=== PATIENT | female | born 1950 | race Caucasian/White ===

== ENCOUNTER 2021-11-10 14:53 | Emergency (ER) | payer OTHER, SELFPAY ==
--- NOTE | ~2021-11-10 | XR_ITS ---
XR chest 2V DATE: 11/10/2021 15:39 INDICATION: Shortness of breath, near syncope. Lethargy TECHNIQUE: AP and lateral views COMPARISON: None FINDINGS: Heart size is borderline. There is aortic unfolding and calcification. No hilar or mediasti nal enlargement. No pulmonary infiltrate or consolidation, pleural effusion or pulmonary vascular con gestion or pneumothorax. Diffuse osteopenia. IMPRESSION: No active pulmonary disease Borderline heart size Aortic atherosclerosis Reviewed, dictated and finalized at location B.
[2021-11-10 14:52] VITALS: BP 125/76; PULSE 81; RESP 22; TEMP 36.4; O2SAT 92
--- NOTE | 2021-11-10 15:03 | ECG_ITS ---
Measurements Intervals [place] Rate: 85 P: 39 WA: 149 QRS: 18 QRSD: 94 T: 2 QT: 409 QTc: 489 Interpretive Statements SINUS RHYTHM VENTRICULAR PREMATURE COMPLEX NONSPECIFIC ST & T-WAVE ABNORMALITY- DIFFUSE LEADS BASELINE WANDER- I, III BORDERLINE ECG Electronically Signed On 11-10-2021 15:19:33 CDT by Maged Lemos D.O.
[2021-11-10] MEDS: SODIUM CHLORIDE 0.9% IV 1,000 ML 999 ML IV CONT (15:10)
[2021-11-10] MEDS: ONDANSETRON INJ 4 MG/2 ML VIAL IV PUSH (15:16)
[2021-11-10 15:17] VITALS: BP 122/78; PULSE 78; PULSE 80; RESP 22; O2SAT 88
[2021-11-10 15:21] VITALS: O2SAT 96
--- NOTE | 2021-11-10 15:21 | PC.NURSE ---
Pt placed on 2 L NC O2 due to oxy 88% on room air. Denies home O2 use, denies feeling SOB. O2 sat now 96% on 2 L NC.
[2021-11-10 15:22] LABS: Basophils Absolute Auto 0.1 K/mm3 (0.0-0.1); Basophils Percent Auto 0.4 % (0.2-1.2); Eosinophils Absolute Auto 0.1 K/mm3 (0-0.3); Eosinophils Percent Auto 0.9 % (0-4.4); Hematocrit 49.4 % (37.0-47.0); Hemoglobin 15.9 g/dL (12.0-15.0); Immature Granulocyte Absolute 0.05 K/mm3 (0.00-0.031); Immature Granulocyte Percent A 0.4 % (0-0.5); Immature Platelet Fraction Pct 7.2 % (0.9-11.2); Lymphocytes Percent Auto 5.5 % (18.3-44.2); Mean Corpuscular HGB Conc 32.2 g/dl (32-36); Mean Corpuscular Hemoglobin 29.8 pg (26-34); Mean Corpuscular Volume 92.5 fl (80-100); Mean Platelet Volume 10.5 fl (7.4-10.4); Monocytes Absolute Auto 0.4 K/mm3 (0.1-0.6); Monocytes Percent Auto 2.8 % (2.6-8.5); Neutrophils Absolute Auto 11.5 K/mm3 (1.3-6.7); Platelet Count Result 277 k/mm3 (150-375); Red Blood Count 5.34 M/mm3 (4.2-5.4); Red Cell Distribution Width 13.2 % (11.5-14.5); White Blood Count 12.8 K/mm3 (4.5-10.0)
[2021-11-10] MEDS: NALOXONE HCL 0.4 MG/ML VIAL IV PUSH (15:28)
[2021-11-10 15:29] LABS: Alanine Aminotransferase 22 U/L (6-35); Albumin Level 4.4 g/dL (3.5-5.1); Alkaline Phosphatase 83 U/L (38-126); Anion Gap 9 mmol/L (8-16); Aspartate Amino Transferase 27 U/L (14-36); Bilirubin,Total 0.8 mg/dL (0.2-1.3); Blood Urea Nitrogen 32 mg/dL (7-17); Calcium 9.3 mg/dL (8.4-10.2); Carbon Dioxide 22 mmol/L (22-30); Chloride 107 mmol/L (98-107); Estimated CRCL calculation 40 ml/min; Estimated Glomerular Filt Rate > 60; Glucose 118 mg/dL (65-110); Lipase 98 U/L (23-300); Sodium 138 mmol/L (137-145)
--- NOTE | 2021-11-10 15:30 | PC.NURSE ---
Pt became alert after admin of narcan IVP, pt denies taking any medications for pain.
--- NOTE | 2021-11-10 15:30 | PC.NURSE ---
Pt to XRAY via stretcher at this time.
[2021-11-10 16:02] LABS: Appearance Urine Clear (Clear); Bilirubin Urine Negative (Negative); Blood Urine 2+ (Negative); Color Urine Yellow (Yellow); Glucose Urine UA Negative (Negative); Ketones Urine Negative (Negative); Leukocyte Esterase Ur Negative LEU/UL (Negative); Nitrate Urine Negative (Negative); Protein Urine 2+ mg/dL (Negative); Specific Grav Ur 1.025 (1.001-1.035); Urobilinogen Urine 0.2 mg/dL (<2.0); pH Urine 5.5 (5.0-9.0)
[2021-11-10 16:04] LABS: Add Urine Microscopic? YES
[2021-11-10 16:13] VITALS: PULSE 93; RESP 16; O2SAT 99
--- NOTE | 2021-11-10 16:14 | PC.NURSE ---
Pt is 99% on room air.
[2021-11-10 16:19] LABS: Mucus Urine Few /lpf; WBC Urine 0-3 /hpf
[2021-11-10 16:25] LABS: Benzodiazepines Screen Urine Negative (Negative)
[2021-11-10 16:30] LABS: Barbiturate Screen Urine Negative (Negative)
[2021-11-10 16:31] LABS: Amphetamine Screen Urine Negative (Negative); Cannabinoid Screen Urine Negative (Negative); Cocaine Screen Urine Negative (Negative); Methadone Screen Urine Negative (Negative); Opiate Screen Urine Negative (Negative); Phencyclidine Screen Urine Negative (Negative)
[2021-11-10] MEDS: POTASSIUM CHLORIDE 20 MEQ TABLET 40 MEQ PO (17:10)
--- NOTE | 2021-11-10 17:49 | ED.GENADULT ---
HPI - General Adult General Chief complaint: Syncope Stated complaint: syncopal Time Seen by Provider: 11/10/21 14:53 History of Present Illness HPI narrative: Patient is a 71-year-old female who presents ER with possible syncope. Patient reports that she has been having vomiting related to some bad turkey that she ate yesterday. There is another family member who is suffering similar symptoms. Patient vomited several times outside of her car and then gotten. Her daughter came and checked on her outside of a local physician's office and found that she was asleep or possibly passed out. No head trauma. Patient is drowsy and pale. Denies chest pain or chest pressure. No abdominal pain. Related Data Allergies Allergy/AdvReac Type Severity Reaction Status Date / Time Penicillins Allergy Rash Verified 11/10/21 15:08 Review of Systems Review of Systems: All systems reviewed & are unremarkable except as noted in HPI and below Constitutional: Constitutional: Denies chills, Denies fever(s) and Reports weakness ENT: Denies nasal congestion and Denies sore throat Cardiovascular: Cardiovascular: Denies chest pain, Denies rapid heart rate and Denies radiating jaw, neck or arm pain Respiratory: Respiratory: Denies cough and Denies dyspnea Gastrointestinal: Gastrointestinal: Denies abdominal pain, Reports diarrhea, Reports nausea and Reports vomiting Genitourinary: Genitourinary: Denies dysuria and Denies flank pain Neurologic: Reports syncope (?), Denies focal weakness and Denies numbness PMFSH Past Medical History Medical History (Updated 11/10/21 @ 18:49 by Horace Lund MD) GERD (gastroesophageal reflux disease) Hypertension Surgical History Surgical History (Updated 11/10/21 @ 18:49 by Horace Lund MD) No pertinent past surgical history Exam Narrative: GENERAL: Fatigued-appearing, well-nourished, and in mild distress. HEAD: Normocephalic, atraumatic. EYES: PERRL and EOMI. ENT: Mucous membranes moist. CHEST: Clear to auscultation. No respiratory distress. HEART: Regular rate and rhythm. Normal peripheral pulses. ABDOMEN: Soft, nontender, nondistended. EXTREMITIES: Normal range of motion. No edema. SKIN: Warm, dry, no rash. NEURO: Alert and oriented x3. PSYCH: Normal mood and affect. Course Course Emergency Course: Patient has been up and ambulatory in ER without issue. No hypoxia with ambulation. She has had a couple episodes of diarrhea. Patient feels better with IV fluid. Discharge home. Vital Signs Vital signs: Vital Signs Temperature 97.6 F 11/10/21 14:52 Pulse Rate 81 11/10/21 14:52 Respiratory Rate 22 H 11/10/21 14:52 Blood Pressure 125/76 11/10/21 14:52 Pulse Oximetry 92 11/10/21 14:52 Temperature 97.6 F 11/10/21 14:52 Pulse Rate 93 11/10/21 16:13 Respiratory Rate 16 11/10/21 16:13 Blood Pressure 122/78 11/10/21 15:17 Pulse Oximetry 99 11/10/21 16:13 Medical Decision Making Vital Signs Vital Signs: Vital Signs Temperature 97.6 F 11/10/21 14:52 Pulse Rate 81 11/10/21 14:52 Respiratory Rate 22 H 11/10/21 14:52 Blood Pressure 125/76 11/10/21 14:52 Pulse Oximetry 92 11/10/21 14:52 Temperature 97.6 F 11/10/21 14:52 Pulse Rate 93 11/10/21 16:13 Respiratory Rate 16 11/10/21 16:13 Blood Pressure 122/78 11/10/21 15:17 Pulse Oximetry 99 11/10/21 16:13 Lab Data Result diagrams: 11/10/21 15:14 11/10/21 15:14 Labs: Lab Results 11/10/21 11/10/21 11/10/21 Range/Units 15:14 15:14 15:48 WBC 12.8 H (4.5-10.0) K/mm3 RBC 5.34 (4.2-5.4) M/mm3 Hgb 15.9 H (12.0-15.0) g/dL Hct 49.4 H (37.0-47.0) % MCV 92.5 (80-100) fl MCH 29.8 (26-34) pg MCHC 32.2 (32-36) g/dl RDW 13.2 (11.5-14.5) % Plt Count 277 (150-375) k/mm3 MPV 10.5 H (7.4-10.4) fl Immature Gran % (Auto) 0.4 (0-0.5) % Neut % (Auto) 90.0 H (45.5-73.1) % Lymph % (
[2021-11-10 19:10] VITALS: BP 130/75; PULSE 103; RESP 18; O2SAT 95
== END 2021-11-10 19:10 | disposition home or self-care (01) ==
PROVIDERS: Emergency Provider Emergency Medicine
DX: K52.9 Noninfective gastroenteritis and colitis, unspecified (principal); E86.0 Dehydration; R55 Syncope and collapse; I10 Essential (primary) hypertension; K21.9 Gastro-esophageal reflux disease without esophagitis; I49.3 Ventricular premature depolarization; R94.31 Abnormal electrocardiogram [ECG] [EKG]; I70.0 Atherosclerosis of aorta
CPT/HCPCS: 36415; 51701; 71046; 80053; 80307; 81001; 83690; 85025; 85055; 93005; 96361; 96374; 96375; 99284; A9270; J2310; J2405; J7030